=== PATIENT | female | born 1950 | race African-American/Black ===

== ENCOUNTER 2016-06-02 19:14 | Emergency (ER) | payer MEDICAID, OTHER ==
[~2016-06-02] VITALS: Ht 165.1 cm; Wt 107.0 kg
[2016-06-02] MEDS ORDERED: ASPI-1093 PO (20:18)
[2016-06-02] MEDS ORDERED: NIFE60TA71 PO (20:18)
[2016-06-02] MEDS ORDERED: LISI-618 PO (20:18)
[2016-06-02] MEDS ORDERED: HYDR25TA PO (20:18)
[2016-06-03] MEDS ORDERED: HYDROCODONE/ACETAMINOPHEN 5-325 MG TABLET PO ONE
[2016-06-03] MEDS ORDERED: NIFEdipine 60 MG ER TABLET PO ONE (00:15)
[2016-06-03] MEDS ORDERED: CYCLOBENZAPRINE HCL 10 MG TABLET PO ONE (00:15)
[2016-06-03] MEDS ORDERED: LISINOPRIL 10 MG TABLET PO ONE (00:15)
[2016-06-03] MEDS ORDERED: HYDROCHLOROTHIAZIDE 25 MG TABLET PO ONE (00:15)
[2016-06-03 01:32] VITALS: BP 168/83
== END 2016-06-03 01:33 | disposition home or self-care (01) ==
LOC: EMS 19:19
DX: S39.012A Strain of muscle, fascia and tendon of lower back, initial encounter (principal); S16.1XXA Strain of muscle, fascia and tendon at neck level, initial encounter; I11.0 Hypertensive heart disease with heart failure; I50.9 Heart failure, unspecified; Z79.82 Long term (current) use of aspirin; V49.88XA Car occupant (driver) (passenger) injured in other specified transport accidents, initial encounter; Y93.89 Activity, other specified; Y92.89 Other specified places as the place of occurrence of the external cause; Y99.8 Other external cause status
CPT/HCPCS: 99284

== ENCOUNTER → 2016-10-04 | Outpatient (CLI) | payer OTHER ==
[~2016-10-04] MED LIST: ASPI-1093 PO; HYDR25TA PO; LISI-618 PO; NIFE60TA71 PO
== END | disposition home or self-care (01) ==
LOC: RADPV 11:04
PROVIDERS: ATTEND Internal Medicine Nephrology
DX: N18.2 Chronic kidney disease, stage 2 (mild) (principal); N28.1 Cyst of kidney, acquired
CPT/HCPCS: 76770

== ENCOUNTER → 2017-02-16 | Outpatient (CLI) | payer OTHER ==
[~2017-02-16] MED LIST changes: -ASPI-1093 PO; +ASPI-1182 PO; +IOVERSOL 350 MG/ML 100 ML VIAL ONE; +SODIUM CHLORIDE 0.9% 100 ML ONE
== END | disposition home or self-care (01) ==
LOC: RADMN 10:44
PROVIDERS: ATTEND Internal Medicine Nephrology
DX: N13.2 Hydronephrosis with renal and ureteral calculous obstruction (principal); N28.1 Cyst of kidney, acquired; M47.816 Spondylosis without myelopathy or radiculopathy, lumbar region
CPT/HCPCS: 74177; J7050; Q9967